=== PATIENT | male | born 1960 | race Caucasian/White ===

== ENCOUNTER 2020-07-11 12:05 | Outpatient (CLI) | payer OTHER, SELFPAY ==
[2020-07-11 12:50] LABS: SARS-CoV-2 Ag Positive (Negative)
== END 2020-07-11 12:06 | disposition home or self-care (01) ==
LOC: CHSLAB 12:09
PROVIDERS: PCP Internal Medicine; Visit Provider Internal Medicine
DX: U07.1 COVID-19 (principal)
CPT/HCPCS: 87426; C9803

== ENCOUNTER 2021-12-07 09:54 | Outpatient (CLI) | payer OTHER, SELFPAY ==
--- NOTE | ~2021-12-07 | XR_ITS ---
EXAMINATION: XR chest 2V 12/07/2021 10:12 INDICATION: Hypertension PROCEDURE: PA and lateral views the chest COMPARISON: 07/10/2014 FINDINGS: The lungs are clear. The cardiomediastinal silhouette is within normal limits. There are no pleural effusions. There is no pneumothorax suspected. IMPRESSION: 1: NO ACUTE CARDIOPULMONARY DISEASE. Reviewed, dictated and finalized at location A.
== END 2021-12-07 09:55 | disposition home or self-care (01) ==
LOC: CHSIMG 09:58
PROVIDERS: PCP Internal Medicine; Visit Provider Internal Medicine
DX: Z00.00 Encounter for general adult medical examination without abnormal findings (principal); I10 Essential (primary) hypertension
CPT/HCPCS: 71046

== ENCOUNTER 2023-10-02 06:36 | Day surgery (SDC) | payer OTHER, SELFPAY ==
[2023-08-28 09:39] VITALS: BMI 32.9
[2023-09-13 12:17] VITALS: BMI 31.8
[2023-10-02 07:26] VITALS: BP 135/98; PULSE 66; RESP 18; TEMP 36.3; O2SAT 100
[2023-10-02] MEDS: LACTATED RINGERS 1,000 ML 150 ML IV CONT (07:49)
--- NOTE | 2023-10-02 08:12 | P.HP_ITS ---
History of Present Illness History of Present Illness Consent: Risks, benefits, and alternatives have been discussed and questions answered. Patient agrees to proceed with procedure. Chief complaint: Neoplasm Screening Narrative: Clayton Martel is a 63 year old male presents for screening colonoscopy. Patient's current weight appetite and bowel movements are normal. Patient denies abdominal pain. He has had no obvious bleeding. Does report occasional difficulty with hemorrhoids. Previous colonoscopy in 2010 revealed benign hyperplastic polyp. Review of Systems Review of Systems: Review Of systems is noncontributory. [facility] Social History Social History Smoking status: Never smoker Alcohol intake: never Substance use: never Substance use type: does not use Living arrangements: with family Spiritual care concerns: No Meds Home Medications and Allergies Home Medications Medication Instructions Recorded Confirmed Type finasteride 5 mg tablet 5 mg PO DAILY 09/13/23 10/02/23 History losartan 50 mg tablet 50 mg PO DAILY 09/13/23 10/02/23 History Allergies Allergy/AdvReac Type Severity Reaction Status Date / Time No Known Allergies Allergy Verified 10/02/23 07:25 Vital Signs Vital Signs - 24 hr 10/02/23 07:26 Temperature 97.4 F L Pulse Rate 66 Respiratory Rate 18 Blood Pressure 135/98 H Pulse Oximetry 100 Oxygen Delivery Room Air Exam Narrative: Physical exam reveals patient to be alert. Vital signs stable. HEENT exam is unremarkable. Patient is anicteric. Lungs are clear to auscultation and percussion. Heart is without murmur or extra sounds. Abdomen sounds are present soft nontender with no organomegaly. Digital external rectal exam is normal. Assessment and Plan Assessment and plan (1) Encounter for screening colonoscopy: Code(s): Z12.11 - Encounter for screening for malignant neoplasm of colon Status: Acute Assessment and Plan: Patient presents today for screening colonoscopy. Further recommendations may be given after endoscopy.
--- NOTE | 2023-10-02 08:50 | WPDANESEPPF ---
Anes - Initial Pre Proc Eval Procedure: Operation Date: 10/02/23 09:00 Proposed Procedures p Screening Colonoscopy - Eugene Brito MD Date/Time: 10/02/23 08:50 Surgeon: Eugene Brito MD Pre Op Diagnosis: Neoplasm Screening Patient Data Age: 63 Gender: M Height: 1.96 m Weight: 121.75 kg Last Vital Signs Temp 36.3 C L 10/02/23 07:26 Pulse 66 10/02/23 07:26 Resp 18 10/02/23 07:26 BP 135/98 H 10/02/23 07:26 Pulse Ox 100 10/02/23 07:26 O2 Del Method Room Air 10/02/23 07:26 Allergies Allergy/AdvReac Type Severity Reaction Status Date / Time No Known Allergies Allergy Verified 10/02/23 07:25 Home Medications Medication Instructions Recorded Confirmed Type finasteride 5 mg tablet 5 mg PO DAILY 09/13/23 10/02/23 History losartan 50 mg tablet 50 mg PO DAILY 09/13/23 10/02/23 History Patient hx anesthesia problems: none Family hx anesthesia problems: none Results Review: All pre-operative results and documents have been reviewed as part of the pre-operative evaluation. [facility] Social History Social History Smoking status: Never smoker Alcohol intake: never Substance use: never Substance use type: does not use Living arrangements: with family Spiritual care concerns: No Anes - Eval Final PreProcedure Day of Procedure 10/02/23 08:50 Patient weight: overweight Heart: regular rate and rhythm Lungs: clear to auscultation Airway: Mallampati scale class II Neurological: alert and oriented Last oral intake: >/= 8 hours ASA classification: II Emergent: no Anesthetic plan: proceed Anesthesia type and monitoring: general GIVS and standard monitoring Results Review: All pre-operative results and documents have been reviewed as part of the pre-operative evaluation. Informed Consent: The patient's anesthetic plan and its attendant risks and benefits were discussed with the patient/family/POA. Questions were solicited and answers provided to the satisfaction of the patient/family/POA.
[2023-10-02 09:08] VITALS: BP 122/87; PULSE 62; RESP 14; O2SAT 98
[2023-10-02 09:18] VITALS: BP 129/92; PULSE 60; RESP 16; O2SAT 97
[2023-10-02 09:28] VITALS: BP 117/85; PULSE 65; RESP 16; O2SAT 99
--- NOTE | 2023-10-02 09:50 | WPDANESPN ---
Anes - Prog Note Post-Op Date/Time: 10/02/23 09:50 Cardiovascular status: normal Respiratory status: normal Airway patency: baseline Mental status: baseline Post-Op hydration status: normal Vital Signs: Last Vital Signs Temp 36.3 C L 10/02/23 07:26 Pulse 65 10/02/23 09:28 Resp 16 10/02/23 09:28 BP 117/85 10/02/23 09:28 Pulse Ox 99 10/02/23 09:28 O2 Del Method Room Air 10/02/23 09:28 Pain Score (VAS): 0 I/O: Intake & Output 10/01/23 10/02/23 10/02/23 23:59 07:59 15:59 Intake Total 500 Balance 500 Patient Feedback: Patient satisfied with anesthetic care.
== END 2023-10-02 09:43 | disposition home or self-care (01) ==
PROVIDERS: PCP Internal Medicine; Visit Provider Internal Medicine Gastroenterology
PROC: 0DJD8ZZ Inspection of Lower Intestinal Tract, Via Natural or Artificial Opening Endoscopic (ICD-10-PCS; CPT 45378; principal; 2023-10-02 09:00)
DX: Z12.11 Encounter for screening for malignant neoplasm of colon (principal); D12.4 Benign neoplasm of descending colon; K64.8 Other hemorrhoids
CPT/HCPCS: 45385

== ENCOUNTER 2023-10-02 07:00 | Outpatient (NON) | payer OTHER, SELFPAY | END 2023-10-02 07:01 | disposition home or self-care (01) | PROVIDERS: PCP Internal Medicine; Visit Provider Internal Medicine Gastroenterology | DX: Z12.11 Encounter for screening for malignant neoplasm of colon (principal) | CPT/HCPCS: 88305 ==